=== PATIENT | male | born 1990 | race Two or more races ===

== ENCOUNTER 2018-07-07 02:46 | Emergency (ER) | payer MEDICAID ==
[~2018-07-07] VITALS: Ht 175.3 cm; Wt 72.6 kg
[2018-07-07 03:15] VITALS: Ht 175.3 cm; Wt 72.6 kg
[2018-07-07 03:53] LABS: BASOPHIL % 0.3 % (0-2); PLATELET COUNT 290 x10^3mcL (130-400); RED CELL DISTRIBUTION WIDTH 13.3 % (11.5-14.5)
[2018-07-07 03:55] LABS: CALCIUM 8.8 mg/dL (8.5-10.1); CHLORIDE SERUM 106 mmol/L (98-107); CREATININE SERUM 1.2 mg/dL (0.7-1.3); GFR1 > 60 mL/min; GLUCOSE SERUM 104 mg/dL (74-106); POTASSIUM SERUM 3.6 mmol/L (3.5-5.1); SODIUM SERUM 140 mmol/L (136-145)
[2018-07-07 03:59] LABS: ALT/SGPT 29 U/L (16-63); AST/SGOT 19 U/L (15-37)
[2018-07-07 04:13] LABS: ALKALINE PHOSPHATASE 43 U/L (46-116); BILIRUBIN TOTAL 0.39 mg/dL (0.20-1.00); TOTAL PROTEIN, SERUM 7.6 g/dL (6.4-8.2)
[2018-07-07 05:05] LABS: AMPHETAMINE QUAL UR NONE DETECTED (See below)
[2018-07-07 05:45] VITALS: BP 147/77
== END 2018-07-07 06:05 | disposition home or self-care (01) ==
LOC: ED 02:46
PROVIDERS: Emergency Medicine
DX: T43.625A Adverse effect of amphetamines, initial encounter (principal); T40.7X5A Adverse effect of cannabis (derivatives), initial encounter; Y92.89 Other specified places as the place of occurrence of the external cause
CPT/HCPCS: 36415; G0480

== ENCOUNTER 2019-01-26 12:15 | Emergency (ER) | payer SELFPAY ==
[~2019-01-26] VITALS: Ht 175.3 cm; Wt 71.2 kg
[2019-01-26 12:47] VITALS: BP 140/92; Ht 175.3 cm; Wt 71.2 kg
== END 2019-01-26 14:35 | disposition home or self-care (01) ==
LOC: ED 12:15
DX: F29 Unspecified psychosis not due to a substance or known physiological condition (principal); F22 Delusional disorders; F30.9 Manic episode, unspecified; F12.90 Cannabis use, unspecified, uncomplicated; F17.210 Nicotine dependence, cigarettes, uncomplicated

== ENCOUNTER 2019-04-29 00:43 | Emergency (ER) | payer BC, MEDICAID ==
[~2019-04-29] VITALS: Ht 175.3 cm; Wt 72.6 kg
[2019-04-29 00:53] VITALS: Ht 175.3 cm; Wt 72.6 kg
[2019-04-29 01:38] LABS: BASOPHIL % 0.5 % (0-2); PLATELET COUNT 237 x10^3mcL (130-400); RED CELL DISTRIBUTION WIDTH 13.8 % (11.5-14.5)
[2019-04-29 01:43] LABS: CALCIUM 8.8 mg/dL (8.5-10.1); CARBON DIOXIDE 23.5 mmol/L (21-32); CHLORIDE SERUM 104 mmol/L (98-107); CREATININE SERUM 1.2 mg/dL (0.7-1.3); GFR1 > 60 mL/min; GLUCOSE SERUM 103 mg/dL (74-106); POTASSIUM SERUM 3.2 mmol/L (3.5-5.1); SODIUM SERUM 140 mmol/L (136-145)
[2019-04-29 01:56] LABS: ALBUMIN 4.2 g/dL (3.4-5.0); ALKALINE PHOSPHATASE 58 U/L (46-116); ALT/SGPT 30 U/L (16-63); AST/SGOT 22 U/L (15-37); BILIRUBIN TOTAL 0.77 mg/dL (0.20-1.00); TOTAL PROTEIN, SERUM 7.4 g/dL (6.4-8.2)
[2019-04-29 02:30] LABS: T4(THYROXINE) 9.1 ug/dL (4.7-13.3)
[2019-04-29 02:59] LABS: AMPHETAMINE QUAL UR POSITIVE (See below)
--- NOTE | 2019-04-29 06:45 | NUR ---
At this time the packet is being reviewed at the designated facilities , will notify ER if placement is found .
[2019-04-29 17:40] VITALS: BP 110/60
== END 2019-04-29 17:40 | disposition short-term general hospital (02) ==
LOC: ED 00:43
PROVIDERS: Emergency Medicine
DX: F15.10 Other stimulant abuse, uncomplicated (principal)
CPT/HCPCS: 36415; G0480